=== PATIENT | male | born 1985 | race Caucasian/White ===

== ENCOUNTER 2023-11-19 19:12 | Emergency (ER) | payer OTHER, SELFPAY ==
[2023-11-19 19:23] VITALS: BP 100/58; PULSE 99; RESP 16; TEMP 36.6; O2SAT 99; BMI 31.0
[2023-11-19] MEDS: 0.9 % SODIUM CHLORIDE 1000 ml 1,000 ML IV (20:32)
[2023-11-19 20:38] LABS: Basophils Absolute Auto 0.02 K/uL (0.00-0.30); Basophils Percent Auto 0.3 % (0.0-3.0); Eosinophils Absolute Auto 0.06 K/uL (0.00-0.50); Hematocrit 46.2 % (37.0-53.0); Hemoglobin* 15.1 gm/dL (13.5-17.5); Immature Granulocytes Abs Auto 0.01 K/uL (0.00-0.30); Immature Granulocytes Pct Auto 0.2 %; Lymphocytes Percent Auto 18.1 % (20-44); Mean Corpuscular HGB Conc 33 gm/dL (32-36); Mean Corpuscular Hemoglobin 28 pg (26-34); Mean Corpuscular Volume 85 fL (80-100); Monocytes Percent Auto 8.7 % (0.0-11.0); Neutrophils Absolute Auto 4.35 K/uL (1.7-7.0); Neutrophils Percent Auto 71.7 % (42.0-72.0); Platelet Count* 187 K/uL (140-440); RDW Coefficient of Variation % 13.6 % (11.5-15.5); Red Blood Count 5.42 m/uL (4.30-5.90); White Blood Count* 6.07 K/uL (4.50-11.00)
--- NOTE | 2023-11-19 20:39 | ED.GENADULT ---
HPI - General Adult General Date Seen: 11/19/23 <Jesica Reese MD - Last Filed: 11/23/23 10:10> Chief complaint: Extremity Pain/Injury, Upper <Jesica Reese MD - Last Filed: 11/23/23 10:10> Stated complaint: L arm tingles, dizzy <Jesica Reese MD - Last Filed: 11/23/23 10:10> Time Seen by Provider: 11/19/23 20:04 <Jesica Reese MD - Last Filed: 11/23/23 10:10> Source: patient <Jesica Reese MD - Last Filed: 11/23/23 10:10> Mode of arrival: ambulatory <Jesica Reese MD - Last Filed: 11/23/23 10:10> Limitations: no limitations <Jesica Reese MD - Last Filed: 11/23/23 10:10> History of Present Illness HPI narrative: Patient is a 38-year-old male, generally healthy, who presents for evaluation of a constellation of symptoms. He says for a while, a number of weeks anyway, he has had a small rounded area on his back which intermittently feels numb. Over the past couple of days, he says he has had a few episodes of sharp brief chest pain that seems to come on with movements or with breathing. Today, he says he just felt kind of off all day. He was at work tonight at [employer] in [place] when he started to feel lightheaded. This was associated with some paresthesias in his left arm which have largely resolved but now he has kind of a sharp pain in his biceps area. He did not faint, has not had palpitations but he has had sort of a pressure sensation in his chest since then, approximately 2 hours at this time. He notes that he quit drinking about 6 months ago. He continues to smoke but is working on quitting. He does not exercise regularly but is hoping to start getting more exercise and improve his diet as well. He does not take any medications on a regular basis. He denies any family history of note. <Jesica Reese MD - Last Filed: 11/23/23 10:10> Related Data Home medications: Home Medications ?Medication ?Instructions ?Recorded ?Confirmed No Known Home Medications 01/08/23 01/08/23 <Jesica Reese MD - Last Filed: 11/23/23 10:10> Allergies/adverse reactions: Allergies Allergy/AdvReac Type Severity Reaction Status Date / Time No Known Drug Allergies Allergy Verified 02/23/22 09:50 <Jesica Reese MD - Last Filed: 11/23/23 10:10> Review of Systems Status of ROS: Reports: 10 or more systems reviewed and unremarkable except as noted in History and below <Jesica Reese MD - Last Filed: 11/23/23 10:10> PFSH PFS Social History: Social History Smoking Status: Current every day smoker What tobacco products do you use: cigarettes Do you use any of these nicotine containing products: None Second hand tobacco smoke exposure: No How often do you have a drink containing alcohol: monthly or less How many standard drinks containing alcohol do you have on a typical day: 1 or 2 AUDIT-C Alcohol total score: 1 Non-prescribed substance use: denies use service: No <Jesica Reese MD - Last Filed: 11/23/23 10:10> Exam Narrative: Exam Narrative: Vital signs as noted above. In general, an alert, well-appearing patient. Head: Normocephalic, atraumatic. Eyes: Pupils are equal reactive. Extraocular movements are full. Conjunctivae are normal. ENT: Mucous membranes are moist. Throat is normal. Neck: Supple without lymphadenopathy. Heart: Regular rate and rhythm. No murmur or rub. Lungs: Clear bilaterally. No increased work of breathing, crackles or wheezes. Abdomen: Soft and nontender. No organomegaly. Extremities: Well perfused. No edema. No calf tenderness. Pulses intact. Neurologic: Patient is alert and oriented to person and place. Speech is fluent. Face is symmetric. Moves all extremities equally. Strength is 5 of 5 in bilateral upper extremities, sensation is intact to light touch. Affect: Normal. Skin: Warm and dry. Well perfused. <Jesica Reese MD - Last Filed: 11/23/23 10:10> Const: Vital Signs, click to edit/add: Vital Signs - 24 hr 11/19/23 19:23 11/19/23 21:30 Temperature 97.9 F Pulse Rate [Pulse Oximeter] 99 61 Respiratory Rate 16 16 Blood Pressure [Ri ght Upper Arm] 100/58 L 133/87 Pulse Oximetry 99 99 Oxygen Delivery Me thod Room Air Room Air <Jesica Reese MD - Last Filed: 11/23/23 10:10> Vital Signs, click to edit/add: Vital Signs - 24 hr 11/19/23 19:23 11/19/23 21:30 Temperature 97.9 F Pulse Rate [Pulse Oximeter] 99 61 Respiratory Rate 16 16 Blood Pressure [Ri ght Upper Arm] 100/58 L 133/87 Pulse Oximetry 99 99 Oxygen Delivery Me thod Room Air Room Air <Duane Troncoso DO - Last Filed: 11/19/23 22:42> Documenting provider has reviewed patient's vital signs: yes <Jesica Reese MD - Last Filed: 11/23/23 10:10> Course Course ED Course: On arrival, he had an EKG which by my review shows a sinus rhythm, ventricular rate of 90. No acute ST segment changes, unremarkable T-waves. He presents with a couple of different kinds of chest pain, some waxing and waning paresthesias and numbness, and lightheadedness. He does have a slightly low blood pressure of 100 over 58, baseline blood pressure is however unknown. I think it is reasonable to check a troponin, rule out myocarditis or less likely acute coronary syndrome, as well as doing a D-dimer given this somewhat pleuritic pain and dizziness today. O2 sats however are 99% on room air. Discussed with him that if labs are all normal here, it may be that this is something we do not have an explanation for and may require outpatient follow-up to determine whether stress test would be indicated or imaging of the head or neck. Neurologic exam is nonfocal at this time. Patient signed out to oncoming physician to follow-up on the 2nd troponin. <Jesica Reese MD - Last Filed: 11/23/23 10:10> Vital Signs Vital signs: Initial Vital Signs Temperature 97.9 F 11/19/23 19:23 Temperature Source Temporal Artery Scan 11/19/23 19:23 Pulse Rate 99 11/19/23 19:23 Respiratory Rate 16 11/19/23 19:23 Blood Pressure 100/58 L 11/19/23 19:23 Blood Pressure Mean 72 11/19/23 19:23 Blood Pressure Position Sitting 11/19/23 19:23 Pulse Oximetry 99 11/19/23 19:23 Oxygen Delivery Method Room Air 11/19/23 19:23 Vital Signs Temperature 97.9 F 11/19/23 19:23 Pulse Rate 99 11/19/23 19:23 Respiratory Rate 16 11/19/23 19:23 Blood Pressure 100/58 L 11/19/23 19:23 Pulse Oximetry 99 11/19/23 19:23 Oxygen Delivery Method Room Air 11/19/23 19:23 Temperature 97.9 F 11/19/23 19:23 Pulse Rate 61 11/19/23 21:30 Respiratory Rate 16 11/19/23 21:30 Blood Pressure 133/87 11/19/23 21:30 Pulse Oximetry 99 11/19/23 21:30 Oxygen Delivery Method Room Air 11/19/23 21:30 <Jesica Reese MD - Last Filed: 11/23/23 10:10> Initial Vital Signs Temperature 97.9 F 11/19/23 19:23 Temperature Source Temporal Artery Scan 11/19/23 19:23 Pulse Rate 99 11/19/23 19:23 Respiratory Rate 16 11/19/23 19:23 Blood Pressure 100/58 L 11/19/23 19:23 Blood Pressure Mean 72 11/19/23 19:23 Blood Pressure Position Sitting 11/19/23 19:23 Pulse Oximetry 99 11/19/23 19:23 Oxygen Delivery Method Room Air 11/19/23 19:23 Vital Signs Temperature 97.9 F 11/19/23 19:23 Pulse Rate 99 11/19/23 19:23 Respiratory Rate 16 11/19/23 19:23 Blood Pressure 100/58 L 11/19/23 19:23 Pulse Oximetry 99 11/19/23 19:23 Oxygen Delivery Method Room Air 11/19/23 19:23 Temperature 97.9 F 11/19/23 19:23 Pulse Rate 61 11/19/23 21:30 Respiratory Rate 16 11/19/23 21:30 Blood Pressure 133/87 11/19/23 21:30 Pulse Oximetry 99 11/19/23 21:30 Oxygen Delivery Method Room Air 11/19/23 21:30 <Duane Troncoso DO - Last Filed: 11/19/23 22:42> Medications Administered Medications: Discontinued Medications Generic Name Dose Route Start Last Admin Trade Name Freq PRN Reason Stop Dose Admin Sodium Chloride 1,000 mls @ 1,000 mls/hr 11/19/23 20:15 11/19/23 21:33 0.9 % Sodium Chloride 1000 Ml IV 11/19/23 21:14 Infused .Q1H JAIRO Infusion <Jesica Reese MD - Last Filed: 11/23/23 10:10> Discontinued Medications Generic Name Dose Route Start Last Admin Trade Name Freq PRN Reason Stop Dose Admin Sodium Chloride 1,000 mls @ 1,000 mls/hr 11/19/23 20:15 11/19/23 21:33 0.9 % Sodium Chloride 1000 Ml IV 11/19/23 21:14 Infused .Q1H JAIRO Infusion <Duane Troncoso DO - Last Filed: 11/19/23 22:42> Medical Decision Making [facility] Narrative Medical decision making narrative: Patient was signed out to me pending a repeat troponin. Repeat troponin is unchanged. He continues to feel well and will be discharged at this time. He is agreeable to this plan. <Duane Troncoso DO - Last Filed: 11/19/23 22:42> Lab Data Labs: Lab Results 11/19/23 11/19/23 11/19/23 Range/Units 20:16 20:32 22:15 WBC 6.07 (4.50-11.00) K/uL RBC 5.42 (4.30-5.90) m/uL Hgb 15.1 (13.5-17.5) gm/dL Hct 46.2 (37.0-53.0) % MCV 85 (80-100) fL MCH 28 (26-34) pg MCHC 33 (32-36) gm/dL RDW Coeff of Sheeba 13.6 (11.5-15.5) % Plt Count 187 (140-440) K/uL Neut % (Auto) 71.7 (42.0-72.0) % Lymph % (Auto) 18.1 L (20-44) % [place] % (Auto) 8.7 (0.0-11.0) % Eos % (Auto) 1.0 (0.0-7.0) % Baso % (Auto) 0.3 (0.0-3.0) % Neut # (Auto) 4.35 (1.7-7.0) K/uL Lymph # (Auto) 1.10 (0.90-2.90) K/uL [place] # (Auto) 0.50 (0.00-0.90) K/UL Eos # (Auto) 0.06 (0.00-0.50) K/uL Baso # (Auto) 0.02 (0.00-0.30) K/uL Abs Immat Gran (auto) 0.01 (0.00-0.30) K/uL Imm/Tot Granulo (auto) 0.2 % D-Dimer Quant (PE/DVT) < 0.27 (0.00-0.50) ug/ml Sodium 139 (135-149) mmol/L Potassium 4.0 (3.6-5.1) mmol/L Chloride 105 (96-114) mmol/L Carbon Dioxide 26 (20-32) mmol/L Anion Gap 8 (7-15) mEq/L BUN 17 (5-24) mg/dL Creatinine 1.1 (0.5-1.5) mg/dL Estimated Creat Clear 86.80 Estimated GFR 89 ml/min Glucose 115 (60-115) mg/dL Calcium 9.5 (8.4-10.6) mg/dL Magnesium 2.0 (1.5-2.6) mg/dL POC Troponin I 0.00 L 0.00 L (0.01-0.04) ng/ml <Jesica Reese MD - Last Filed: 11/23/23 10:10> Lab Results 11/19/23 11/19/23 11/19/23 Range/Units 20:16 20:32 22:15 WBC 6.07 (4.50-11.00) K/uL RBC 5.42 (4.30-5.90) m/uL Hgb 15.1 (13.5-17.5) gm/dL Hct 46.2 (37.0-53.0) % MCV 85 (80-100) fL MCH 28 (26-34) pg MCHC 33 (32-36) gm/dL RDW Coeff of Sheeba 13.6 (11.5-15.5) % Plt Count 187 (140-440) K/uL Neut % (Auto) 71.7 (42.0-72.0) % Lymph % (Auto) 18.1 L (20-44) % [place] % (Auto) 8.7 (0.0-11.0) % Eos % (Auto) 1.0 (0.0-7.0) % Baso % (Auto) 0.3 (0.0-3.0) % Neut # (Auto) 4.35 (1.7-7.0) K/uL Lymph # (Auto) 1.10 (0.90-2.90) K/uL [place] # (Auto) 0.50 (0.00-0.90) K/UL Eos # (Auto) 0.06 (0.00-0.50) K/uL Baso # (Auto) 0.02 (0.00-0.30) K/uL Abs Immat Gran (auto) 0.01 (0.00-0.30) K/uL Imm/Tot Granulo (auto) 0.2 % D-Dimer Quant (PE/DVT) < 0.27 (0.00-0.50) ug/ml Sodium 139 (135-149) mmol/L Potassium 4.0 (3.6-5.1) mmol/L Chloride 105 (96-114) mmol/L Carbon Dioxide 26 (20-32) mmol/L Anion Gap 8 (7-15) mEq/L BUN 17 (5-24) mg/dL Creatinine 1.1 (0.5-1.5) mg/dL Estimated Creat Clear 86.80 Estimated GFR 89 ml/min Glucose 115 (60-115) mg/dL Calcium 9.5 (8.4-10.6) mg/dL Magnesium 2.0 (1.5-2.6) mg/dL POC Troponin I 0.00 L 0.00 L (0.01-0.04) ng/ml <Duane Troncoso DO - Last Filed: 11/19/23 22:42> Discharge Plan Discharge Clinical Impression: Chest pain <Jesica Reese MD - Last Filed: 11/23/23 10:10> Patient Disposition: Home, Self-Care <Jesica Reese MD - Last Filed: 11/23/23 10:10> Condition: Improved <Jesica Reese MD - Last Filed: 11/23/23 10:10> Instructions: Chest Pain (DC) <Jesica Reese MD - Last Filed: 11/23/23 10:10> Additional Instructions: Your test tonight are all normal including the troponin and D-dimer test that we talked about earlier. As we discussed, it may be hard to determine a cause for your symptoms in the ER tonight, but we have ruled out dangerous causes. I would suggest that you follow-up with a primary care doctor, if you do not have 1 you are welcome to follow-up with Dr. Payne in our clinic here, . He may need additional testing as an outpatient if you are continuing to have difficulties. Return to the ER at any time for severe symptoms, significant shortness of breath, fainting, or other worsening. <Jesica Reese MD - Last Filed: 11/23/23 10:10> Prescriptions: No Action No Known Home Medications <Jesica Reese MD - Last Filed: 11/23/23 10:10> Follow Up/Referrals: Provider,Not a Local [Primary Care Provider] - <Jesica Reese MD - Last Filed: 11/23/23 10:10> Stand Alone Forms: [employer] Info Instructions <Jesica Reese MD - Last Filed: 11/23/23 10:10>
[2023-11-19 20:49] LABS: Chloride* 105 mmol/L (96-114)
[2023-11-19 20:50] LABS: Sodium* 139 mmol/L (135-149)
[2023-11-19 20:52] LABS: Creatinine* 1.1 mg/dL (0.5-1.5); Estimated Glomerular Filt Rate 89 ml/min
[2023-11-19 20:53] LABS: Anion Gap 8 mEq/L (7-15); Blood Urea Nitrogen* 17 mg/dL (5-24); Calcium* 9.5 mg/dL (8.4-10.6); Carbon Dioxide* 26 mmol/L (20-32); Glucose* 115 mg/dL (60-115)
[2023-11-19 21:13] LABS: D Dimer Quantitative* < 0.27 ug/ml (0.00-0.50)
[2023-11-19 21:14] LABS: Slide Review Reflex No
[2023-11-19 21:30] VITALS: BP 133/87; PULSE 61; RESP 16; O2SAT 99
== END 2023-11-19 22:49 | disposition home or self-care (01) ==
PROVIDERS: Emergency Provider Emergency Medicine
DX: R07.9 Chest pain, unspecified (principal)
CPT/HCPCS: 36415; 80048; 83735; 84484; 85025; 85379; 93005; 99283; 99284; J7030